=== PATIENT | male | born 1945 | race Caucasian/White ===

== ENCOUNTER 2019-11-03 07:57 | Day surgery (SDC) | payer MEDICARE, OTHER ==
[2019-11-02 09:56] VITALS: BMI 32.9
[2019-11-03 08:30] LABS: Hemoglobin 15.8 g/dL (14.0-18.0)
[2019-11-03 08:47] LABS: Anion Gap 14 mmol/L (10-20); BUN (Urea Nitrogen) 23 mg/dL (8.4-25.7); Calc. Creatinine Clearance 84 mL/min (70-130); Calcium 10.2 mg/dL (7.8-10.44); Carbon Dioxide 27 mmol/L (23-31); Chloride 99 mmol/L (98-107); Estimated GFR-MDRD 69; Glucose 268 mg/dL (83-110); Potassium 3.9 mmol/L (3.5-5.1); Sodium 136 mmol/L (136-145)
[2019-11-03] MEDS ORDERED: Sodium Chloride 0.9% 0 ML ONE (11:49)
[2019-11-03] MEDS ORDERED: EPINEPHrine 1 MG/ML AMP ONE (11:49)
[2019-11-03] MEDS ORDERED: Fentanyl 100 MCG/2 ML VIAL ONE (11:50)
[2019-11-03] MEDS ORDERED: Phenylephrine HCL 10 MG/ML VIAL ONE (12:57)
[2019-11-03] MEDS ORDERED: Ondansetron PF 4 MG/2 ML Vial ONE (14:31)
[2019-11-03] MEDS ORDERED: Succinylcholine Chloride 20 MG/ML 10 ml SYRINGE FS ONE (14:31)
[2019-11-03] MEDS ORDERED: PROPOFOL 200 MG/20 ML VIAL ONE (14:31)
[2019-11-03] MEDS ORDERED: PHENYLEPHRINE-NS 100 MCG/ML 10 ML SYRINGE ONE (14:31)
[2019-11-03] MEDS ORDERED: Lidocaine 1% PF 5 ML VIAL ONE (14:31)
[2019-11-03] MEDS ORDERED: ePHEDrine/0.9% NaCl/PF SYRINGE 50 mg/10 ml ONE (14:31)
[2019-11-03] MEDS ORDERED: Dexamethasone 20 MG/5 ML VIAL ONE (14:31)
--- NOTE | 2019-11-05 02:04 | OP ---
DATE OF PROCEDURE: 11/03/2019 PROCEDURES PERFORMED: Septoplasty, submucosal reduction of inferior turbinates and reconstruction of the nasal valve. PERMIT: Procedures, benefits and risks including those of bleeding, infection, injury from anesthesia, allergic reaction, cerebrospinal fluid leak or nasal septal perforation necessitating revision repair and alternatives were reviewed with the patient and family, who expressed understanding of the information and consent form was signed and witnessed. A paper copy of the consent form is available for review in the paper chart. ASSISTANTS: None. FINDINGS: Severely deviated septum with enlarged turbinates and nasal valve collapse. DESCRIPTION OF PROCEDURE: The patient was brought to the operating room and laid supine on the operating room table. General endotracheal anesthesia was administered. The septum was infiltrated bilaterally with 1% lidocaine with 1:100,000 epinephrine. Six cottonoids soaked with Afrin were then placed bilaterally in the nasal cavities, 3 on each side. The patient was then prepped and draped in the usual fashion. The patient was seen to have a severe septal deviation to the left. Thus, at this point, in the mean time, Spivey incision was made on the left side followed by elevation of the mucoperichondrial flaps. The bony cartilaginous junction was then disarticulated and the opposite side was also elevated as well. The bony spur was taken down along the floor utilizing a Ralph and the curved suction. Care was taken to avoid the stabilizing of the caudal septum or the dorsal septum. Portion of the bony septum was also seen to be deviating to the left and into the right. Thus, at this point in time, the portion was taken down utilizing Ralph forceps. After this was performed, next, elevation of the nose was then performed with endoscopes. Evaluation of the nose was then performed with endoscope and the mucoperichondrial flaps were reapproximated using 4-0 chromic suture in a mattress fashion and 5-0 chromic suture was then used to close the Natalio incision. Bilateral inferior turbinate reductions were then performed. A small stab incision was made along the anterior inferior head of the inferior turbinates. Followed by elevation of the mucosal pocket using the small turbinates oscillating debrider, which was then placed into the pocket and removal of the erectile tissue was performed inside the inferior turbinates on both sides. After this was performed, both inferior turbinates were then lateralized using a Jeffery elevator. A suction Bovie was then used to cauterize the opening stab incision. Next, at this point, the nasal valve was evaluated and found to have both preoperatively in the operating room showed severe nasal stenosis and collapse with inspiration. An implant was then used to insert lateral nasal wall percutaneously in the skin and medial to the cartilage and overlying the nasal bone was then inserted. After insertion, the lateral nasal wall was found to be dilated and opened. Same procedure was performed bilaterally to reconstruct the nasal valve. At this point in time, the nasal cavities were evaluated bilaterally and Ramos splints were placed on both sides and sutured to the anterior nasal septum with 2-0 silk suture. There was no bleeding seen at the end of the case and the patient was turned over to Anesthesia for emergence. Job ID: [id number]
--- NOTE | 2019-11-05 21:23 | EKG ---
Test Reason : PREOP Blood Pressure : / mmHG Vent. Rate : 093 BPM Atrial Rate : 093 BPM P-R Int : 244 ms QRS Dur : 104 ms QT Int : 360 ms P-R-T Axes : 072 -01 021 degrees QTc Int : 447 ms Sinus rhythm with 1st degree A-V block Otherwise normal ECG No previous ECGs available Confirmed by Koko DIAZ ([id number]) on 11/05/2019 9:22:47 PM Referred By: PAM Confirmed By:Koko DIAZ
== END 2019-11-03 15:33 | disposition home or self-care (01) ==
LOC: SDC 07:57
PROVIDERS: ATTEND Student in an Organized Health Care Education/Training Program
PROC: 09BM0ZZ Excision of Nasal Septum, Open Approach (ICD-10-PCS; principal; 2019-11-03)
PROC: 09TL0ZZ Resection of Nasal Turbinate, Open Approach (ICD-10-PCS; 2019-11-03)
DX: J34.2 Deviated nasal septum (principal); J34.3 Hypertrophy of nasal turbinates; I10 Essential (primary) hypertension; Z79.1 Long term (current) use of non-steroidal anti-inflammatories (NSAID); Z79.82 Long term (current) use of aspirin; Z79.84 Long term (current) use of oral hypoglycemic drugs; Z79.899 Other long term (current) drug therapy; Z88.0 Allergy status to penicillin; Z88.5 Allergy status to narcotic agent
CPT/HCPCS: 36415; 80048; 85014; 85018; 93005; 93010; J0171; J1100; J2001; J2370; J2405; J2704; J3010